=== PATIENT | female | born 1960 | race Caucasian/White ===

== ENCOUNTER 2023-09-09 15:12 | Inpatient (IN) | payer MEDICARE, OTHER ==
[~2023-09-09] VITALS: Ht 160 cm; Wt 49.9 kg
[~2023-09-09 15:12] MED LIST: FLUO10CA26 PO; OMEP20TA20 PO
[2023-09-09] MEDS ORDERED: CEFTRIAXONE 2 G in IV DEXTROSE 5% 100 ML IV ONE (15:30)
[2023-09-09] MEDS ORDERED: IV NORMAL SALINE 1000 ML BAG IV ONE (15:30)
[2023-09-09] MEDS ORDERED: METRONIDAZOLE 500 MG/NS 100 ML PIGGYBACK IV ONE (15:30)
[2023-09-09] MEDS ORDERED: CEFTRIAXONE 1 G VIAL ONE (15:55)
[2023-09-09] MEDS ORDERED: METRONIDAZOLE 500 MG/NS 100ML 100 ML IV ONE (15:55)
[2023-09-09 16:10] LABS: BASOPHILS # (AUTO) 0.1 K/UL (0.0-0.2); BASOPHILS % (AUTO) 1.5 % (0.0-2.0); DIFFERENTIAL COMMENT 0; EOSINOPHILS % (AUTO) 0.3 % (0.0-7.0); HEMOGLOBIN 7.8 g/dL (10.9-14.3); LYMPHOCYTES # (AUTO) 0.4 K/uL (0.8-4.8); LYMPHOCYTES % (AUTO) 5.7 % (20.5-51.5); MEAN CORPUSCULAR HEMOGLOBIN 20.6 uug (24.7-32.8); MEAN CORPUSCULAR HGB CONC 30 g/dL (32.3-35.6); MEAN CORPUSCULAR VOLUME 69.3 fL (75.5-95.3); MONOCYTES # (AUTO) 0.4 K/uL (0.1-1.30); MONOCYTES % (AUTO) 5.3 % (0.0-11.0); NEUTROPHILS # (AUTO) 5.8 K/uL (1.8-8.9); NEUTROPHILS % (AUTO) 87.2 % (38.5-71.5); PLATELET COUNT (AUTO) 251 K/uL (179-408); RED BLOOD CELL COUNT(AUTO) 3.76 MIL/uL (3.63-4.92); RED CELL DISTRIBUTION WIDTH 22.7 % (12.3-17.7); WHITE BLOOD COUNT (AUTO) 6.7 K/uL (3.8-11.8)
[2023-09-09 16:11] LABS: ETHANOL < 3 MG/DL (0-10)
[2023-09-09 16:15] LABS: AMMONIA < 10 umol/L (11-32)
[2023-09-09 16:22] LABS: THYROID STIMULATING HORMONE 1.036 mIU/mL (0.358-3.740)
[2023-09-09 16:32] LABS: CALCIUM 9.6 mg/dL (8.5-10.1); CARBON DIOXIDE 18 mmol/L (21-32); CHLORIDE 106 mmol/L (98-107); CREATININE 0.6 mg/dL (0.6-1.3); GLUCOSE 91 mg/dL (74-106); POTASSIUM 3.8 mmol/L (3.5-5.1); SODIUM SERUM 145 mmol/L (136-145); UREA NITROGEN, BLOOD 40 mg/dL (7-18)
[2023-09-09 16:41] LABS: ALANINE AMINOTRANSFERASE 225 U/L (14-59); ALBUMIN 2.1 g/dL (3.4-5.0); ALKALINE PHOSPHATASE 163 U/L (50-136); ASPARTATE AMINOTRANSFERASE 107 U/L (15-37); BILIRUBIN,DIRECT 0.4 mg/dL (0.0-0.2); BILIRUBIN,TOTAL 0.8 mg/dL (0.2-1.0); TOTAL PROTEIN, SERUM 6.3 g/dL (6.4-8.2)
[2023-09-09 16:42] LABS: ACETAMINOPHEN < 10.0 ug/mL (10-30)
[2023-09-09 17:08] LABS: *BLOOD, URINE NEGATIVE (NEGATIVE); *CLARITY,URINE CLEAR (CLEAR); *COLOR,URINE DARK YELLOW (YELLOW); *KETONES,URINE 2+ (NEGATIVE); *PROTEIN,URINE 1+ (NEGATIVE); *UROBILINOGEN,URINE 0.2 E.U./dl (NORMAL); LEUKOCYTE ESTERASE ,URINE NEGATIVE (NEGATIVE); NITRITE, URINE NEGATIVE (NEGATIVE); UGLUCOSE NEGATIVE (NEGATIVE)
[2023-09-09 17:14] LABS: *BILIRUBIN,URIN 1+ (NEGATIVE)
[2023-09-09 17:39] LABS: *AMPHETAMINE, URINE NEGATIVE (NEGATIVE); *BARBITURATE, URINE NEGATIVE (NEGATIVE); *BENZODIAZEPINE, URINE POSITIVE (NEGATIVE); *CANNABINOID, URINE NEGATIVE (NEGATIVE); *COCCAINE, URINE POSITIVE (NEGATIVE); *OPIATE, URINE NEGATIVE (NEGATIVE); *PHENCYCLIDINE SCREEN,URINE NEGATIVE (NEGATIVE); FENTANYL, URINE NEGATIVE (NEGATIVE)
[2023-09-09] MEDS ORDERED: SWABABLE VALVE TRANSFER SET EA MC ONE (17:41)
[2023-09-09] MEDS ORDERED: IOHEXOL 300MG/ML 100 ML INFUS..BTL ONE (17:41)
[2023-09-09] MEDS ORDERED: IV NORMAL SALINE 250 ML IV ONE (17:41)
[2023-09-09 18:56] LABS: RBC,URINE 0-3 /HPF (0-3)
[2023-09-09 18:57] LABS: WBC,URINE NONE SEEN /HPF (0-3)
[2023-09-09 18:58] LABS: BACTERIA,URINE FEW /HPF (NONE SEEN)
[2023-09-09 19:00] LABS: SQUAMOUS EPITHELIAL CELL,UR FEW /HPF (NONE SEEN)
[2023-09-09] MEDS ORDERED: REMEDY ESSENTIAL ZINC PASTE 113 GM TP PRN (19:00)
[2023-09-09] MEDS ORDERED: ONDANSETRON 4 MG/2 ML VIAL IV PRN (19:00)
[2023-09-09] MEDS ORDERED: IV D5W-0.45% NS +20 KCL 1,000 ML IV ONE ×2 (19:36→19:45)
[2023-09-09 21:20] VITALS: BP 119/74; TEMP 98.8; O2SAT 93
[2023-09-09] MEDS: IV NS 1000 ML 1,000 ML IV PRN (22:26)
[2023-09-09] MEDS ORDERED: PIPERACILLIN/TAZO 4.5 GM VIAL IV ONE ×2 (22:41→22:42)
[2023-09-09] MEDS: PIPERACILLIN SODIUM/TAZOBACTAM 4.5 G in IV DEXTROSE 5% 50 ML IV SCH (23:00)
[2023-09-10] VITALS: BP 116/74; TEMP 98.5; O2SAT 92
[2023-09-10 04:00] VITALS: BP 125/74; TEMP 98.7; O2SAT 94
[2023-09-10] MEDS: PIPERACILLIN SODIUM/TAZOBACTAM 4.5 G in IV DEXTROSE 5% 50 ML IV SCH (05:22)
[2023-09-10 06:51] LABS: BASOPHILS % (AUTO) 0.3 % (0.0-2.0); EOSINOPHILS % (AUTO) 0.3 % (0.0-7.0); HEMATOCRIT 23.4 % (31.2-41.9); LYMPHOCYTES # (AUTO) 0.4 K/uL (0.8-4.8); LYMPHOCYTES % (AUTO) 5.9 % (20.5-51.5); MEAN CORPUSCULAR HEMOGLOBIN 21.2 uug (24.7-32.8); MEAN CORPUSCULAR HGB CONC 31 g/dL (32.3-35.6); MEAN CORPUSCULAR VOLUME 67.8 fL (75.5-95.3); MONOCYTES # (AUTO) 0.4 K/uL (0.1-1.30); MONOCYTES % (AUTO) 6.4 % (0.0-11.0); NEUTROPHILS # (AUTO) 5.3 K/uL (1.8-8.9); NEUTROPHILS % (AUTO) 87.1 % (38.5-71.5); PLATELET COUNT (AUTO) 230 K/uL (179-408); RED BLOOD CELL COUNT(AUTO) 3.45 MIL/uL (3.63-4.92); RED CELL DISTRIBUTION WIDTH 22.3 % (12.3-17.7); WHITE BLOOD COUNT (AUTO) 6.1 K/uL (3.8-11.8)
[2023-09-10 07:04] LABS: DIFFERENTIAL COMMENT 1; HEMOGLOBIN 7.3 g/dL (10.9-14.3)
[2023-09-10 07:10] LABS: ALBUMIN 1.9 g/dL (3.4-5.0); BILIRUBIN,TOTAL 0.6 mg/dL (0.2-1.0); CALCIUM 8.5 mg/dL (8.5-10.1); CREATININE 0.7 mg/dL (0.6-1.3); MAGNESIUM 2.1 mg/dL (1.8-2.4); PHOSPHOROUS 2.3 mg/dL (2.5-4.9); POTASSIUM 3.6 mmol/L (3.5-5.1); TOTAL PROTEIN, SERUM 5.8 g/dL (6.4-8.2)
[2023-09-10 08:00] VITALS: BP 129/82; TEMP 97.6; O2SAT 98
[2023-09-10 11:22] VITALS: BP 142/86; TEMP 98; O2SAT 94
[2023-09-10 11:38] LABS: ANISOCYTOSIS 2+; BAND % (MANUAL) 8 % (0-10); HYPOCHROMASIA 1+; LYMPHOCYTES % (MANUAL) 7 % (20-40); METAMYELOCYTES % 1 % (0-1); MONOCYTES % (MANUAL) 7 % (2-10); NEUTROPHILS % (MANUAL) 77 % (42-75); PLATELET ESTIMATE ADEQUATE
[2023-09-10] MEDS: IV NS 1000 ML 1,000 ML IV PRN (12:18)
[2023-09-10] MEDS: PIPERACILLIN SODIUM/TAZOBACTAM 3.375 G in IV DEXTROSE 5% 100 ML IV SCH ×2 (13:58→22:14)
[2023-09-10] MEDS ORDERED: PIPERACILLIN SODIUM/TAZOBACTAM 4.5 G in IV DEXTROSE 5% 50 ML IV SCH (14:00)
[2023-09-10] MEDS: ACETYLCYSTEINE 10% 4ML VIAL NEB PRN (14:05)
[2023-09-10] MEDS: ALBUTEROL SULFATE 2.5 MG/3 ML NEBU NEB PRN (14:05)
[2023-09-10 15:47] VITALS: BP 132/85; TEMP 97.8; O2SAT 94
[2023-09-10] MEDS ORDERED: NEUTRA PHOS PACKET PO ONE (16:00)
[2023-09-10] MEDS ORDERED: POTASSIUM PHOSPHATE MM 15 MMOL in IV NORMAL SALINE 250 ML IV ONE (18:30)
[2023-09-10] MEDS ORDERED: MORPHINE SULFATE 2 MG/1 ML DISP.SYRIN IV PRN (19:45)
[2023-09-10 20:15] VITALS: BP 147/95; TEMP 98.2; O2SAT 91
[2023-09-11] VITALS (8 sets, daily range): BP systolic 127–175; BP diastolic 82–99; TEMP 97.8–99.4; O2SAT 93–98
[2023-09-11] MEDS: ALBUTEROL SULFATE 2.5 MG/3 ML NEBU NEB PRN (01:40)
[2023-09-11] MEDS: ACETYLCYSTEINE 10% 4ML VIAL NEB PRN (01:41)
[2023-09-11] MEDS: PIPERACILLIN SODIUM/TAZOBACTAM 3.375 G in IV DEXTROSE 5% 100 ML IV SCH ×3 (05:15→21:50)
[2023-09-11 07:48] LABS: BASOPHILS % (AUTO) 0.1 % (0.0-2.0); EOSINOPHILS % (AUTO) 0.8 % (0.0-7.0); LYMPHOCYTES % (AUTO) 16.7 % (20.5-51.5); MEAN CORPUSCULAR HEMOGLOBIN 21.7 uug (24.7-32.8); MEAN CORPUSCULAR HGB CONC 32 g/dL (32.3-35.6); MEAN CORPUSCULAR VOLUME 67.5 fL (75.5-95.3); MONOCYTES # (AUTO) 0.4 K/uL (0.1-1.30); MONOCYTES % (AUTO) 6.5 % (0.0-11.0); NEUTROPHILS # (AUTO) 4.6 K/uL (1.8-8.9); NEUTROPHILS % (AUTO) 75.9 % (38.5-71.5); PLATELET COUNT (AUTO) 217 K/uL (179-408); RED BLOOD CELL COUNT(AUTO) 3.02 MIL/uL (3.63-4.92); RED CELL DISTRIBUTION WIDTH 22.6 % (12.3-17.7)
[2023-09-11 07:57] LABS: CREATININE 0.6 mg/dL (0.6-1.3); POTASSIUM 3.5 mmol/L (3.5-5.1)
[2023-09-11 08:03] LABS: ALBUMIN 1.6 g/dL (3.4-5.0); BILIRUBIN,TOTAL 0.7 mg/dL (0.2-1.0); TOTAL PROTEIN, SERUM 5.4 g/dL (6.4-8.2)
[2023-09-11 08:07] LABS: DIFFERENTIAL COMMENT 1
[2023-09-11 08:09] LABS: HEMATOCRIT 20.4 % (31.2-41.9); HEMOGLOBIN 6.6 g/dL (10.9-14.3)
[2023-09-11] MEDS: MORPHINE SULFATE 4 MG/1 ML DISP.SYRIN IV PRN ×2 (10:08→14:22)
[2023-09-11] MEDS ORDERED: QUET200T PO (10:10)
[2023-09-11] MEDS ORDERED: OXCA600T8 PO (10:10)
[2023-09-11] MEDS ORDERED: ALBU18HF2 INH (10:10)
[2023-09-11] MEDS ORDERED: OMEP40CA21 PO (10:10)
[2023-09-11] MEDS ORDERED: CITA20TA16 PO (10:10)
[2023-09-11] MEDS: IV D5W 1000ML 1,000 ML IV PRN (11:07)
[2023-09-11 14:47] LABS: ANISOCYTOSIS 1+; BAND % (MANUAL) 6 % (0-10); EOSINOPHILS % (MANUAL) 2 % (0-8); HYPOCHROMASIA 1+; LYMPHOCYTES % (MANUAL) 13 % (20-40); MONOCYTES % (MANUAL) 7 % (2-10); NEUTROPHILS % (MANUAL) 72 % (42-75); PLATELET ESTIMATE ADEQUATE
[2023-09-11] MEDS: hydrALAZINE HCL 25 MG TABLET PO PRN (15:00)
[2023-09-11] MEDS: OXCARBAZEPINE 300 MG TABLET PO SCH (17:06)
[2023-09-11] MEDS ORDERED: PIPERACILLIN SODIUM/TAZOBACTAM 3.375 G in IV DEXTROSE 5% 50 ML IV ONE (18:00)
[2023-09-11] MEDS ORDERED: ALBUTEROL SULFATE 8 GM HFA.AER.AD INH SCH (18:00)
[2023-09-11 19:12] LABS: HEMATOCRIT 29.3 % (31.2-41.9); HEMOGLOBIN 9.3 g/dL (10.9-14.3)
[2023-09-11] MEDS: QUETIAPINE FUMARATE 200 MG TABLET PO SCH (20:08)
[2023-09-11] MEDS ORDERED: PIPERACILLIN SODIUM/TAZO 3.375 GM VIAL ONE ×2 (21:41→21:42)
[2023-09-11 23:06] LABS: *BILIRUBIN,URIN 1+ (NEGATIVE); *BLOOD, URINE 1+ (NEGATIVE); *CLARITY,URINE CLOUDY (CLEAR); *COLOR,URINE DARK YELLOW (YELLOW); *KETONES,URINE TRACE (NEGATIVE); *PROTEIN,URINE 2+ (NEGATIVE); *UROBILINOGEN,URINE 0.2 E.U./dl (NORMAL); LEUKOCYTE ESTERASE ,URINE NEGATIVE (NEGATIVE); NITRITE, URINE NEGATIVE (NEGATIVE); PH,URINE 5.5 (5.0-8.0); UGLUCOSE NEGATIVE (NEGATIVE)
[2023-09-11 23:13] LABS: *CREATININE,URINE 105.7 mg/dL (30-125); *URINE TOTAL PROTEIN RANDOM 100.5 mg/dL (<150/24HR)
[2023-09-11 23:18] LABS: BACTERIA,URINE NONE SEEN /HPF (NONE SEEN); SQUAMOUS EPITHELIAL CELL,UR FEW /HPF (NONE SEEN)
[2023-09-11 23:19] LABS: URIC ACID CRYSTALS,URINE MODERATE /HPF (NONE SEEN)
[2023-09-12] VITALS (8 sets, daily range): BP systolic 112–120; BP diastolic 70–77; TEMP 97–97.4; O2SAT 96–98
[2023-09-12] MEDS: PIPERACILLIN SODIUM/TAZOBACTAM 3.375 G in IV DEXTROSE 5% 100 ML IV SCH ×3 (05:15→21:33)
[2023-09-12] MEDS: IV D5W 1000ML 1,000 ML IV PRN ×2 (05:16→18:03)
[2023-09-12] MEDS: PANTOPRAZOLE SODIUM 40 MG TABLET.DR PO SCH (06:25)
[2023-09-12] MEDS: HYDROMORPHONE 1 MG/1 ML DISP.SYRIN IV PRN ×2 (06:33→14:22)
[2023-09-12] MEDS: CITALOPRAM 20 MG TABLET PO SCH (09:08)
[2023-09-12] MEDS: OXCARBAZEPINE 300 MG TABLET PO SCH ×2 (09:09→16:06)
[2023-09-12 09:37] LABS: BASOPHILS % (AUTO) 0.1 % (0.0-2.0); DIFFERENTIAL COMMENT 0; EOSINOPHILS # (AUTO) 0.1 K/uL (0.0-0.7); EOSINOPHILS % (AUTO) 0.5 % (0.0-7.0); HEMATOCRIT 24.4 % (31.2-41.9); HEMOGLOBIN 7.7 g/dL (10.9-14.3); LYMPHOCYTES # (AUTO) 0.9 K/uL (0.8-4.8); LYMPHOCYTES % (AUTO) 9.2 % (20.5-51.5); MEAN CORPUSCULAR HEMOGLOBIN 22.8 uug (24.7-32.8); MEAN CORPUSCULAR HGB CONC 32 g/dL (32.3-35.6); MEAN CORPUSCULAR VOLUME 72.1 fL (75.5-95.3); MONOCYTES % (AUTO) 10.3 % (0.0-11.0); NEUTROPHILS # (AUTO) 7.9 K/uL (1.8-8.9); NEUTROPHILS % (AUTO) 79.9 % (38.5-71.5); PLATELET COUNT (AUTO) 179 K/uL (179-408); RED BLOOD CELL COUNT(AUTO) 3.39 MIL/uL (3.63-4.92); WHITE BLOOD COUNT (AUTO) 9.9 K/uL (3.8-11.8)
[2023-09-12] MEDS: ALBUTEROL SULFATE 2.5 MG/3 ML NEBU NEB PRN ×2 (10:08→13:53)
[2023-09-12] MEDS: ACETYLCYSTEINE 10% 4ML VIAL NEB PRN (10:09)
[2023-09-12 10:30] LABS: BILIRUBIN,TOTAL 0.7 mg/dL (0.2-1.0); CALCIUM 8.3 mg/dL (8.5-10.1); CREATININE 0.7 mg/dL (0.6-1.3); MAGNESIUM 1.9 mg/dL (1.8-2.4); PHOSPHOROUS 2.5 mg/dL (2.5-4.9); POTASSIUM 3.7 mmol/L (3.5-5.1); TOTAL PROTEIN, SERUM 5.4 g/dL (6.4-8.2)
[2023-09-12 10:38] LABS: ALBUMIN 1.5 g/dL (3.4-5.0)
[2023-09-12] MEDS ORDERED: BUSP5POW PO (12:14)
[2023-09-12] MEDS ORDERED: BUSP5TAB3 PO (12:15)
[2023-09-12] MEDS: busPIRone 5 MG TABLET PO SCH (16:06)
[2023-09-12] MEDS: QUETIAPINE FUMARATE 200 MG TABLET PO SCH (20:53)
[2023-09-13] VITALS (11 sets, daily range): BP systolic 109–137; BP diastolic 46–88; TEMP 97–98.5; O2SAT 92–97
[2023-09-13] MEDS: PIPERACILLIN SODIUM/TAZOBACTAM 3.375 G in IV DEXTROSE 5% 100 ML IV SCH ×3 (05:31→21:42)
[2023-09-13] MEDS: PANTOPRAZOLE SODIUM 40 MG TABLET.DR PO SCH (06:01)
[2023-09-13 06:52] LABS: EOSINOPHILS # (AUTO) 0.1 K/uL (0.0-0.7)
[2023-09-13 06:55] LABS: BASOPHILS % (AUTO) 0.2 % (0.0-2.0); EOSINOPHILS % (AUTO) 1.1 % (0.0-7.0); LYMPHOCYTES # (AUTO) 0.9 K/uL (0.8-4.8); LYMPHOCYTES % (AUTO) 10.3 % (20.5-51.5); MEAN CORPUSCULAR HEMOGLOBIN 23.3 uug (24.7-32.8); MEAN CORPUSCULAR HGB CONC 32 g/dL (32.3-35.6); MEAN CORPUSCULAR VOLUME 71.7 fL (75.5-95.3); MONOCYTES % (AUTO) 10.9 % (0.0-11.0); NEUTROPHILS % (AUTO) 77.5 % (38.5-71.5); PLATELET COUNT (AUTO) 155 K/uL (179-408); RED BLOOD CELL COUNT(AUTO) 2.88 MIL/uL (3.63-4.92); RED CELL DISTRIBUTION WIDTH 23.8 % (12.3-17.7)
[2023-09-13 07:03] LABS: DIFFERENTIAL COMMENT 1
[2023-09-13 07:07] LABS: HEMATOCRIT 20.6 % (31.2-41.9); HEMOGLOBIN 6.7 g/dL (10.9-14.3)
[2023-09-13 07:28] LABS: MAGNESIUM 1.8 mg/dL (1.8-2.4); PHOSPHOROUS 2.8 mg/dL (2.5-4.9)
[2023-09-13 09:01] LABS: IRON, SERUM 13 ug/dL (50-175)
[2023-09-13] MEDS: CITALOPRAM 20 MG TABLET PO SCH (09:16)
[2023-09-13] MEDS: busPIRone 5 MG TABLET PO SCH ×2 (09:16→17:10)
[2023-09-13] MEDS: OXCARBAZEPINE 300 MG TABLET PO SCH ×2 (09:16→17:10)
[2023-09-13 10:37] LABS: BAND % (MANUAL) 5 % (0-10); EOSINOPHILS % (MANUAL) 1 % (0-8); LYMPHOCYTES % (MANUAL) 13 % (20-40); MONOCYTES % (MANUAL) 11 % (2-10); NEUTROPHILS % (MANUAL) 70 % (42-75); PLATELET ESTIMATE ADEQUATE
[2023-09-13 10:38] LABS: ANISOCYTOSIS 2+; HYPOCHROMASIA 1+
[2023-09-13] MEDS ORDERED: ALBUTEROL SULFATE 2.5 MG/3 ML NEBU ONE (12:55)
[2023-09-13] MEDS ORDERED: PROPOFOL 200 MG/20 ML BOTTLE ONE (13:00)
[2023-09-13] MEDS ORDERED: ALBUTEROL SULFATE 8 GM HFA.AER.AD ONE (13:59)
[2023-09-13] MEDS: HYDROMORPHONE 1 MG/1 ML DISP.SYRIN IV PRN ×2 (15:28→20:09)
[2023-09-13] MEDS: MEDIHONEY= THERAHONEY 1.5 OZ TUBE TOP SCH (16:24)
[2023-09-13] MEDS: BENZOCAINE/MENTH/CETYLPYRD LOZENGE MM PRN (17:10)
[2023-09-13] MEDS: SUCRALFATE 1 G/10 ML LIQUID UDC GT SCH ×2 (17:10→20:06)
[2023-09-13] MEDS: QUETIAPINE FUMARATE 200 MG TABLET PO SCH (20:06)
[2023-09-13] MEDS ORDERED: IOHEXOL 300MG/ML 100 ML INFUS..BTL ONE (20:23)
[2023-09-13] MEDS ORDERED: IV NORMAL SALINE 250 ML IV ONE (20:23)
[2023-09-13] MEDS ORDERED: SWABABLE VALVE TRANSFER SET EA MC ONE (20:23)
[2023-09-14] MEDS: IV D5W 1000ML 1,000 ML IV PRN ×2 (01:47→15:21)
[2023-09-14 04:42] VITALS: BP 128/70; TEMP 98.7; O2SAT 95
[2023-09-14] MEDS: PIPERACILLIN SODIUM/TAZOBACTAM 3.375 G in IV DEXTROSE 5% 100 ML IV SCH ×3 (05:30→21:09)
[2023-09-14] MEDS: PANTOPRAZOLE SODIUM 40 MG TABLET.DR PO SCH (06:01)
[2023-09-14 07:36] LABS: HEMATOCRIT 24.2 % (31.2-41.9); HEMOGLOBIN 7.9 g/dL (10.9-14.3)
[2023-09-14] MEDS: SUCRALFATE 1 G/10 ML LIQUID UDC GT SCH ×4 (07:39→20:30)
[2023-09-14] MEDS: FLUCONAZOLE 200 MG TABLET PO SCH (08:36)
[2023-09-14] MEDS: OXCARBAZEPINE 300 MG TABLET PO SCH ×2 (08:36→16:53)
[2023-09-14] MEDS: busPIRone 5 MG TABLET PO SCH ×2 (08:36→16:52)
[2023-09-14] MEDS: MEDIHONEY= THERAHONEY 1.5 OZ TUBE TOP SCH (08:36)
[2023-09-14] MEDS: CITALOPRAM 20 MG TABLET PO SCH (08:36)
[2023-09-14] MEDS: HYDROMORPHONE 1 MG/1 ML DISP.SYRIN IV PRN ×2 (09:09→15:21)
[2023-09-14 11:02] VITALS: BP 147/81; TEMP 98.2; O2SAT 95
[2023-09-14 15:09] VITALS: BP 128/80; TEMP 98.2; O2SAT 92
[2023-09-14] MEDS: BENZOCAINE/MENTH/CETYLPYRD LOZENGE MM PRN (16:53)
[2023-09-14] MEDS: QUETIAPINE FUMARATE 200 MG TABLET PO SCH (20:30)
[2023-09-14 20:48] VITALS: BP 140/70; TEMP 99.1; O2SAT 95
[2023-09-15 00:18] VITALS: O2SAT 97
[2023-09-15 04:05] VITALS: BP 110/71; TEMP 98.6; O2SAT 97
[2023-09-15] MEDS: PIPERACILLIN SODIUM/TAZOBACTAM 3.375 G in IV DEXTROSE 5% 100 ML IV SCH ×3 (05:12→22:46)
[2023-09-15] MEDS: IV D5W 1000ML 1,000 ML IV PRN (05:13)
[2023-09-15 06:48] LABS: BASOPHILS % (AUTO) 0.4 % (0.0-2.0); EOSINOPHILS # (AUTO) 0.1 K/uL (0.0-0.7); EOSINOPHILS % (AUTO) 0.8 % (0.0-7.0); HEMATOCRIT 23.4 % (31.2-41.9); HEMOGLOBIN 7.7 g/dL (10.9-14.3); LYMPHOCYTES # (AUTO) 0.6 K/uL (0.8-4.8); LYMPHOCYTES % (AUTO) 8.1 % (20.5-51.5); MEAN CORPUSCULAR HEMOGLOBIN 24.8 uug (24.7-32.8); MEAN CORPUSCULAR HGB CONC 33 g/dL (32.3-35.6); MEAN CORPUSCULAR VOLUME 75.4 fL (75.5-95.3); MONOCYTES % (AUTO) 14.5 % (0.0-11.0); NEUTROPHILS # (AUTO) 5.3 K/uL (1.8-8.9); NEUTROPHILS % (AUTO) 76.2 % (38.5-71.5); PLATELET COUNT (AUTO) 236 K/uL (179-408); RED BLOOD CELL COUNT(AUTO) 3.11 MIL/uL (3.63-4.92); WHITE BLOOD COUNT (AUTO) 6.9 K/uL (3.8-11.8)
[2023-09-15] MEDS: PANTOPRAZOLE SODIUM 40 MG TABLET.DR PO SCH (06:53)
[2023-09-15] MEDS: SUCRALFATE 1 G/10 ML LIQUID UDC GT SCH ×4 (06:53→20:48)
[2023-09-15] MEDS: HYDROMORPHONE 1 MG/1 ML DISP.SYRIN IV PRN (06:54)
[2023-09-15 07:00] LABS: DIFFERENTIAL COMMENT 1
[2023-09-15 07:12] LABS: CALCIUM 7.4 mg/dL (8.5-10.1); CREATININE 0.6 mg/dL (0.6-1.3); MAGNESIUM 1.7 mg/dL (1.8-2.4); PHOSPHOROUS 2.4 mg/dL (2.5-4.9); POTASSIUM 2.9 mmol/L (3.5-5.1)
[2023-09-15] MEDS: busPIRone 5 MG TABLET PO SCH ×2 (09:51→17:00)
[2023-09-15] MEDS: CITALOPRAM 20 MG TABLET PO SCH (09:51)
[2023-09-15] MEDS: OXCARBAZEPINE 300 MG TABLET PO SCH ×2 (09:52→17:00)
[2023-09-15] MEDS: FLUCONAZOLE 200 MG TABLET PO SCH (09:52)
[2023-09-15] MEDS: MEDIHONEY= THERAHONEY 1.5 OZ TUBE TOP SCH (09:56)
[2023-09-15] MEDS ORDERED: POTASSIUM CHLORIDE 50 ML IV SCH (10:00)
[2023-09-15] MEDS ORDERED: DIATR MEGLU/DIATRIZOATE SODIUM 30 ML BOTTLE ONE (10:47)
[2023-09-15] MEDS: POTASSIUM CHLORIDE 20 MEQ POWDER PACKET PO SCH ×3 (11:15→15:00)
[2023-09-15] MEDS: MAGNESIUM OXIDE 400 MG TABLET PO SCH ×2 (11:15→12:00)
[2023-09-15 11:42] VITALS: BP 162/95; TEMP 98.6; O2SAT 97
[2023-09-15] MEDS: ACETAMINOPHEN 325 MG TABLET PO PRN (14:19)
[2023-09-15 16:08] VITALS: BP 150/98; TEMP 97.6; O2SAT 97
[2023-09-15] MEDS ORDERED: POTASSIUM PHOSPHATE MM 15 MMOL in IV NORMAL SALINE 250 ML IV ONE (16:15)
[2023-09-15 17:30] VITALS: O2SAT 98
[2023-09-15] MEDS ORDERED: MORPHINE SULFATE 2 MG/1 ML DISP.SYRIN IV ONE (20:00)
[2023-09-15 20:19] VITALS: BP 153/92; TEMP 98.5; O2SAT 98
[2023-09-15] MEDS: QUETIAPINE FUMARATE 200 MG TABLET PO SCH (20:48)
[2023-09-16 00:19] VITALS: O2SAT 97
[2023-09-16] MEDS: IV D5W 1000ML 1,000 ML IV PRN ×2 (04:55→20:07)
[2023-09-16 04:57] VITALS: BP 131/81; TEMP 98; O2SAT 93
[2023-09-16] MEDS: PIPERACILLIN SODIUM/TAZOBACTAM 3.375 G in IV DEXTROSE 5% 100 ML IV SCH ×3 (05:38→23:37)
[2023-09-16] MEDS: SUCRALFATE 1 G/10 ML LIQUID UDC GT SCH ×4 (06:39→21:09)
[2023-09-16] MEDS: PANTOPRAZOLE SODIUM 40 MG TABLET.DR PO SCH (06:39)
[2023-09-16 07:16] LABS: BASOPHILS % (AUTO) 0.5 % (0.0-2.0); EOSINOPHILS # (AUTO) 0.1 K/uL (0.0-0.7); EOSINOPHILS % (AUTO) 1.3 % (0.0-7.0); HEMATOCRIT 24.1 % (31.2-41.9); HEMOGLOBIN 7.9 g/dL (10.9-14.3); LYMPHOCYTES # (AUTO) 0.6 K/uL (0.8-4.8); LYMPHOCYTES % (AUTO) 10.3 % (20.5-51.5); MEAN CORPUSCULAR HEMOGLOBIN 25.1 uug (24.7-32.8); MEAN CORPUSCULAR HGB CONC 33 g/dL (32.3-35.6); MEAN CORPUSCULAR VOLUME 76.3 fL (75.5-95.3); MONOCYTES # (AUTO) 1.1 K/uL (0.1-1.30); MONOCYTES % (AUTO) 18.6 % (0.0-11.0); NEUTROPHILS # (AUTO) 4.2 K/uL (1.8-8.9); NEUTROPHILS % (AUTO) 69.3 % (38.5-71.5); PLATELET COUNT (AUTO) 323 K/uL (179-408); RED BLOOD CELL COUNT(AUTO) 3.16 MIL/uL (3.63-4.92); RED CELL DISTRIBUTION WIDTH 25.7 % (12.3-17.7); WHITE BLOOD COUNT (AUTO) 6.1 K/uL (3.8-11.8)
[2023-09-16 07:25] LABS: DIFFERENTIAL COMMENT 1
[2023-09-16 07:29] LABS: CREATININE 0.5 mg/dL (0.6-1.3); MAGNESIUM 1.7 mg/dL (1.8-2.4)
[2023-09-16 07:33] LABS: CALCIUM 7.6 mg/dL (8.5-10.1)
[2023-09-16 07:37] LABS: POTASSIUM 2.7 mmol/L (3.5-5.1)
[2023-09-16] MEDS: POTASSIUM CHLORIDE 50 ML IV SCH ×8 (09:00→15:00)
[2023-09-16] MEDS: CITALOPRAM 20 MG TABLET PO SCH (09:09)
[2023-09-16] MEDS: OXCARBAZEPINE 300 MG TABLET PO SCH ×2 (09:09→17:17)
[2023-09-16] MEDS: busPIRone 5 MG TABLET PO SCH ×2 (09:09→17:09)
[2023-09-16] MEDS: FLUCONAZOLE 200 MG TABLET PO SCH (09:10)
[2023-09-16] MEDS: MEDIHONEY= THERAHONEY 1.5 OZ TUBE TOP SCH (09:11)
[2023-09-16] MEDS: MORPHINE SULFATE 2 MG/1 ML DISP.SYRIN IV PRN ×2 (10:17→19:55)
[2023-09-16] MEDS ORDERED: MAGNESIUM OXIDE 400 MG TABLET PO ONE (11:00)
[2023-09-16 11:12] VITALS: BP 132/84; TEMP 98.6; O2SAT 97
[2023-09-16 14:06] LABS: ANISOCYTOSIS 2+; BAND % (MANUAL) 3 % (0-10); EOSINOPHILS % (MANUAL) 1 % (0-8); HYPOCHROMASIA 1+; LYMPHOCYTES % (MANUAL) 9 % (20-40); MONOCYTES % (MANUAL) 18 % (2-10); NEUTROPHILS % (MANUAL) 69 % (42-75); PLATELET ESTIMATE ADEQUATE
[2023-09-16] MEDS: POTASSIUM CHLORIDE 10 MEQ, LIDOCAINE 1% 1 ML in IV DEXTROSE 5% 100 ML IV SCH ×6 (15:06→22:32)
[2023-09-16 15:16] VITALS: BP 167/92; TEMP 98.5; O2SAT 95
[2023-09-16 16:42] VITALS: O2SAT 98
[2023-09-16] MEDS ORDERED: NEUTRA PHOS PACKET PO ONE (18:00)
[2023-09-16 21:00] VITALS: BP 161/96; TEMP 98.4; O2SAT 97
[2023-09-16] MEDS: QUETIAPINE FUMARATE 200 MG TABLET PO SCH (21:09)
[2023-09-16] MEDS: hydrALAZINE HCL 25 MG TABLET PO PRN (21:20)
[2023-09-17] VITALS (8 sets, daily range): BP systolic 136–153; BP diastolic 60–93; TEMP 98–98.5; O2SAT 93–100
[2023-09-17] MEDS: MORPHINE SULFATE 2 MG/1 ML DISP.SYRIN IV PRN ×5 (05:22→21:50)
[2023-09-17] MEDS: SUCRALFATE 1 G/10 ML LIQUID UDC GT SCH ×4 (06:35→21:50)
[2023-09-17] MEDS: PIPERACILLIN SODIUM/TAZOBACTAM 3.375 G in IV DEXTROSE 5% 100 ML IV SCH ×3 (06:35→22:40)
[2023-09-17] MEDS: PANTOPRAZOLE SODIUM 40 MG TABLET.DR PO SCH (06:35)
[2023-09-17 07:05] LABS: EOSINOPHILS # (AUTO) 0.1 K/uL (0.0-0.7); LYMPHOCYTES # (AUTO) 0.7 K/uL (0.8-4.8); MEAN CORPUSCULAR HEMOGLOBIN 24.9 uug (24.7-32.8); NEUTROPHILS # (AUTO) 3.7 K/uL (1.8-8.9); WHITE BLOOD COUNT (AUTO) 5.5 K/uL (3.8-11.8)
[2023-09-17 07:08] LABS: BASOPHILS % (AUTO) 0.8 % (0.0-2.0); EOSINOPHILS % (AUTO) 1.3 % (0.0-7.0); HEMATOCRIT 22.9 % (31.2-41.9); LYMPHOCYTES % (AUTO) 13.3 % (20.5-51.5); MEAN CORPUSCULAR HGB CONC 32 g/dL (32.3-35.6); MEAN CORPUSCULAR VOLUME 76.8 fL (75.5-95.3); NEUTROPHILS % (AUTO) 66.6 % (38.5-71.5); PLATELET COUNT (AUTO) 365 K/uL (179-408); RED BLOOD CELL COUNT(AUTO) 2.99 MIL/uL (3.63-4.92); RED CELL DISTRIBUTION WIDTH 26.3 % (12.3-17.7)
[2023-09-17 07:14] LABS: DIFFERENTIAL COMMENT 1; HEMOGLOBIN 7.4 g/dL (10.9-14.3)
[2023-09-17 07:36] LABS: CALCIUM 7.8 mg/dL (8.5-10.1); CARBON DIOXIDE 26 mmol/L (21-32); CHLORIDE 102 mmol/L (98-107); CREATININE 0.4 mg/dL (0.6-1.3); GLUCOSE 104 mg/dL (74-106); MAGNESIUM 1.8 mg/dL (1.8-2.4); POTASSIUM 3.2 mmol/L (3.5-5.1); SODIUM SERUM 135 mmol/L (136-145); UREA NITROGEN, BLOOD 3 mg/dL (7-18)
[2023-09-17] MEDS: CITALOPRAM 20 MG TABLET PO SCH (08:32)
[2023-09-17] MEDS: OXCARBAZEPINE 300 MG TABLET PO SCH ×2 (08:32→17:06)
[2023-09-17] MEDS: FLUCONAZOLE 200 MG TABLET PO SCH (08:32)
[2023-09-17] MEDS: busPIRone 5 MG TABLET PO SCH ×2 (08:39→17:06)
[2023-09-17] MEDS: MEDIHONEY= THERAHONEY 1.5 OZ TUBE TOP SCH (08:46)
[2023-09-17 11:04] LABS: ANISOCYTOSIS 2+; BAND % (MANUAL) 1 % (0-10); EOSINOPHILS % (MANUAL) 1 % (0-8); HYPOCHROMASIA 1+; LYMPHOCYTES % (MANUAL) 11 % (20-40); MONOCYTES % (MANUAL) 14 % (2-10); NEUTROPHILS % (MANUAL) 73 % (42-75); PLATELET ESTIMATE ADEQUATE
[2023-09-17] MEDS: VANCOMYCIN FOR PO/GT/NG USE PO SCH ×3 (12:11→23:03)
[2023-09-17] MEDS: POTASSIUM CHLORIDE 20 MEQ POWDER PACKET PO SCH ×4 (12:30→14:30)
[2023-09-17] MEDS ORDERED: POTASSIUM CHLORIDE 10 MEQ TAB.PRT.SR PO ONE (15:45)
[2023-09-17] MEDS: SODIUM PHOSPHATE MM 15 MMOL in IV NORMAL SALINE 250 ML IV ONE ×2 (17:06→18:55)
[2023-09-17] MEDS: ALBUTEROL SULFATE 2.5 MG/3 ML NEBU NEB PRN (18:15)
[2023-09-17] MEDS: QUETIAPINE FUMARATE 200 MG TABLET PO SCH (21:50)
[2023-09-18] VITALS (8 sets, daily range): BP systolic 116–162; BP diastolic 52–83; TEMP 98.2–98.9; O2SAT 92–97
[2023-09-18] MEDS: MORPHINE SULFATE 2 MG/1 ML DISP.SYRIN IV PRN ×2 (03:08→08:19)
[2023-09-18] MEDS: VANCOMYCIN FOR PO/GT/NG USE PO SCH ×4 (05:33→23:15)
[2023-09-18] MEDS: PIPERACILLIN SODIUM/TAZOBACTAM 3.375 G in IV DEXTROSE 5% 100 ML IV SCH (05:33)
[2023-09-18 06:32] LABS: EOSINOPHILS # (AUTO) 0.1 K/uL (0.0-0.7); NEUTROPHILS # (AUTO) 3.9 K/uL (1.8-8.9)
[2023-09-18 06:33] LABS: BASOPHILS # (AUTO) 0.1 K/UL (0.0-0.2); BASOPHILS % (AUTO) 1.1 % (0.0-2.0); EOSINOPHILS % (AUTO) 1.8 % (0.0-7.0); HEMATOCRIT 22.1 % (31.2-41.9); LYMPHOCYTES # (AUTO) 0.9 K/uL (0.8-4.8); LYMPHOCYTES % (AUTO) 15.5 % (20.5-51.5); MEAN CORPUSCULAR HEMOGLOBIN 25.2 uug (24.7-32.8); MEAN CORPUSCULAR HGB CONC 33 g/dL (32.3-35.6); MEAN CORPUSCULAR VOLUME 76.5 fL (75.5-95.3); MONOCYTES % (AUTO) 16.3 % (0.0-11.0); NEUTROPHILS % (AUTO) 65.3 % (38.5-71.5); PLATELET COUNT (AUTO) 462 K/uL (179-408); RED CELL DISTRIBUTION WIDTH 26.2 % (12.3-17.7); WHITE BLOOD COUNT (AUTO) 5.9 K/uL (3.8-11.8)
[2023-09-18 06:39] LABS: CALCIUM 7.8 mg/dL (8.5-10.1); CREATININE 0.5 mg/dL (0.6-1.3); MAGNESIUM 1.7 mg/dL (1.8-2.4); PHOSPHOROUS 2.7 mg/dL (2.5-4.9)
[2023-09-18 06:47] LABS: DIFFERENTIAL COMMENT 1; HEMOGLOBIN 7.3 g/dL (10.9-14.3)
[2023-09-18 06:50] LABS: NEUTROPHILS % (MANUAL) 0 % (42-75)
[2023-09-18 06:51] LABS: LYMPHOCYTES % (MANUAL) 0 % (20-40)
[2023-09-18] MEDS: PANTOPRAZOLE SODIUM 40 MG TABLET.DR PO SCH (07:03)
[2023-09-18] MEDS: SUCRALFATE 1 G/10 ML LIQUID UDC GT SCH ×4 (07:03→20:42)
[2023-09-18] MEDS: FLUCONAZOLE 200 MG TABLET PO SCH (08:18)
[2023-09-18] MEDS: CITALOPRAM 20 MG TABLET PO SCH (08:18)
[2023-09-18] MEDS: MEDIHONEY= THERAHONEY 1.5 OZ TUBE TOP SCH (08:18)
[2023-09-18] MEDS: OXCARBAZEPINE 300 MG TABLET PO SCH ×2 (08:18→16:48)
[2023-09-18] MEDS: busPIRone 5 MG TABLET PO SCH ×2 (08:18→16:47)
[2023-09-18] MEDS ORDERED: POTASSIUM CHLORIDE 20 MEQ POWDER PACKET GT ONE ×2 (10:00→14:00)
[2023-09-18] MEDS ORDERED: VANC500V PO (10:19)
[2023-09-18] MEDS ORDERED: SUCR1ORA GT (10:19)
[2023-09-18] MEDS ORDERED: FLUC200T PO (10:19)
[2023-09-18] MEDS: MAGNESIUM OXIDE 400 MG TABLET PO SCH ×2 (10:27→14:00)
[2023-09-18] MEDS ORDERED: POTASSIUM CHLORIDE 20 MEQ TAB.PRT.SR PO ONE (14:00)
[2023-09-18] MEDS ORDERED: POTASSIUM CHLORIDE 10 MEQ TAB.PRT.SR PO ONE (14:00)
[2023-09-18] MEDS: QUETIAPINE FUMARATE 200 MG TABLET PO SCH (20:42)
[2023-09-18] MEDS: ACETAMINOPHEN 325 MG TABLET PO PRN (20:54)
[2023-09-19 05:00] VITALS: O2SAT 98
[2023-09-19] MEDS: VANCOMYCIN FOR PO/GT/NG USE PO SCH ×2 (06:03→11:45)
[2023-09-19] MEDS: PANTOPRAZOLE SODIUM 40 MG TABLET.DR PO SCH (06:05)
[2023-09-19 06:10] VITALS: BP 164/94; TEMP 97.1; O2SAT 93
[2023-09-19] MEDS: hydrALAZINE HCL 25 MG TABLET PO PRN (06:18)
[2023-09-19 07:31] LABS: CALCIUM 8.3 mg/dL (8.5-10.1); CARBON DIOXIDE 28 mmol/L (21-32); CHLORIDE 104 mmol/L (98-107); CREATININE 0.4 mg/dL (0.6-1.3); GLUCOSE 92 mg/dL (74-106); MAGNESIUM 1.8 mg/dL (1.8-2.4); POTASSIUM 3.3 mmol/L (3.5-5.1); SODIUM SERUM 137 mmol/L (136-145); UREA NITROGEN, BLOOD 4 mg/dL (7-18)
[2023-09-19] MEDS: busPIRone 5 MG TABLET PO SCH (09:07)
[2023-09-19] MEDS: SUCRALFATE 1 G/10 ML LIQUID UDC GT SCH ×3 (09:07→15:45)
[2023-09-19] MEDS: CITALOPRAM 20 MG TABLET PO SCH (09:07)
[2023-09-19] MEDS: FLUCONAZOLE 200 MG TABLET PO SCH (09:08)
[2023-09-19] MEDS: OXCARBAZEPINE 300 MG TABLET PO SCH (09:08)
[2023-09-19] MEDS: MEDIHONEY= THERAHONEY 1.5 OZ TUBE TOP SCH (09:09)
[2023-09-19] MEDS: ACETAMINOPHEN 325 MG TABLET PO PRN (09:12)
[2023-09-19 09:23] LABS: BASOPHILS # (AUTO) 0.1 K/UL (0.0-0.2); BASOPHILS % (AUTO) 0.8 % (0.0-2.0); EOSINOPHILS # (AUTO) 0.1 K/uL (0.0-0.7); EOSINOPHILS % (AUTO) 1.1 % (0.0-7.0); HEMATOCRIT 32.5 % (31.2-41.9); HEMOGLOBIN 10.2 g/dL (10.9-14.3); LYMPHOCYTES # (AUTO) 0.9 K/uL (0.8-4.8); LYMPHOCYTES % (AUTO) 12.7 % (20.5-51.5); MEAN CORPUSCULAR HEMOGLOBIN 28.4 uug (24.7-32.8); MEAN CORPUSCULAR HGB CONC 31 g/dL (32.3-35.6); MEAN CORPUSCULAR VOLUME 90.4 fL (75.5-95.3); MONOCYTES # (AUTO) 0.9 K/uL (0.1-1.30); MONOCYTES % (AUTO) 13.4 % (0.0-11.0); NEUTROPHILS # (AUTO) 4.9 K/uL (1.8-8.9); PLATELET COUNT (AUTO) 262 K/uL (179-408); WHITE BLOOD COUNT (AUTO) 6.8 K/uL (3.8-11.8)
[2023-09-19 09:24] LABS: DIFFERENTIAL COMMENT 1
[2023-09-19 11:18] VITALS: BP 137/79; TEMP 98.4; O2SAT 95
[2023-09-19] MEDS: POTASSIUM CHLORIDE 10 MEQ TAB.PRT.SR PO SCH ×2 (14:31→15:45)
[2023-09-19 16:08] VITALS: BP 139/72; TEMP 98.7; O2SAT 95
== END 2023-09-19 16:50 | DRG 981 ==
LOC: ER 15:12 → TELE3 20:58 → MEDSURG3 09-13 09:45
PROVIDERS: ADMIT Internal Medicine; ATTEND Internal Medicine
PROC: 30233N1 Transfusion of Nonautologous Red Blood Cells into Peripheral Vein, Percutaneous Approach (ICD-10-PCS; 2023-09-11)
PROC: 0W3P8ZZ Control Bleeding in Gastrointestinal Tract, Via Natural or Artificial Opening Endoscopic (ICD-10-PCS; principal; 2023-09-13)
PROC: 0JB83ZZ Excision of Abdomen Subcutaneous Tissue and Fascia, Percutaneous Approach (ICD-10-PCS; 2023-09-15)
PROC: 0KB Muscles, Excision (ICD-10-PCS; 2023-09-17)
PROC: 0KB Muscles, Excision (ICD-10-PCS; 2023-09-17)
PROC: 0KBP3ZZ Excision of Left Hip Muscle, Percutaneous Approach (ICD-10-PCS; 2023-09-17)
PROC: 0KBN3ZZ Excision of Right Hip Muscle, Percutaneous Approach (ICD-10-PCS; 2023-09-17)
DX: A04.72 Enterocolitis due to Clostridium difficile, not specified as recurrent (principal); E43 Unspecified severe protein-calorie malnutrition; K28.0 Acute gastrojejunal ulcer with hemorrhage; G93.41 Metabolic encephalopathy; E87.0 Hyperosmolality and hypernatremia; B37.81 Candidal esophagitis; D62 Acute posthemorrhagic anemia; T81.31XA Disruption of external operation (surgical) wound, not elsewhere classified, initial encounter; K56.7 Ileus, unspecified; F14.10 Cocaine abuse, uncomplicated; F15.90 Other stimulant use, unspecified, uncomplicated; S30.0XXA Contusion of lower back and pelvis, initial encounter; S20.229A Contusion of unspecified back wall of thorax, initial encounter; X58.XXXA Exposure to other specified factors, initial encounter; Y92.89 Other specified places as the place of occurrence of the external cause; F31.9 Bipolar disorder, unspecified; Z98.84 Bariatric surgery status; Z90.49 Acquired absence of other specified parts of digestive tract; Z79.899 Other long term (current) drug therapy; Z88.2 Allergy status to sulfonamides; J44.89 Other specified chronic obstructive pulmonary disease; D63.8 Anemia in other chronic diseases classified elsewhere; K43.9 Ventral hernia without obstruction or gangrene; K29.70 Gastritis, unspecified, without bleeding; K82.8 Other specified diseases of gallbladder; S00.31XA Abrasion of nose, initial encounter
CPT/HCPCS: 36415; 70030-TC; 70450; 71045; 74250; 83550; 83605; 83735; 84100; 84300; 84443; 84484; 85018; 85025; 85730; 86850; 86900; 86901; 86920; 87040; 93005; 94640; A4663; A6209; A6213; G0378; G0480; J0696; J1170; J2001; J2270; J2543; J3370; J3480; J3490; J3535; J7040; J7070; P9016; Q9963; Q9967

== ENCOUNTER 2023-12-24 18:02 | Emergency (ER) | payer MEDICARE, OTHER ==
[~2023-12-24] VITALS: Ht 160 cm; Wt 40.8 kg
[~2023-12-24 18:02] MED LIST changes: +ALBU18HF2 INH; +BUSP5TAB3 PO; +CITA20TA16 PO; +FLUC200T PO; -FLUO10CA26 PO; -OMEP20TA20 PO; +OMEP40CA21 PO; +OXCA600T8 PO; +QUET200T PO; +SUCR1ORA GT; +VANC500V PO
[2023-12-24 18:52] LABS: ABG BASE EXCESS 3.7 mmol/L (-2.0-2.0); ABG HCO3 28.5 mmol/L (22.0-26.0); ABG PCO2 44.1 mmHg (35.0-48.0); ABG PH 7.428 (7.340-7.440); ABG PO2 68.6 mmHg (75.0-100.0); ABG SITE RIGHT RADIAL; ABG TOTAL HEMOGLOBIN 11.4 G/dL (12.0-16.0); AaDO2 94.1 mmHg; COHb 2.2 % (0.0-3.9); MetHb 0.2 % (0.0-1.5); O2Hb 92.3 % (94.0-97.0)
[2023-12-24] MEDS ORDERED: AZITHROMYCIN IV 500 MG in IV DEXTROSE 5% 250 ML IV ONE (19:15)
[2023-12-24] MEDS ORDERED: DEXAMETHASONE SOD PHOSPHATE 10 MG INJ ONE (19:26)
[2023-12-24 19:30] LABS: BASOPHILS % (AUTO) 0.5 % (0.0-2.0); EOSINOPHILS # (AUTO) 0.3 K/uL (0.0-0.7); HEMATOCRIT 31.9 % (31.2-41.9); HEMOGLOBIN 10.7 g/dL (10.9-14.3); LYMPHOCYTES # (AUTO) 1.1 K/uL (0.8-4.8); LYMPHOCYTES % (AUTO) 16.2 % (20.5-51.5); MEAN CORPUSCULAR HEMOGLOBIN 29.8 uug (24.7-32.8); MEAN CORPUSCULAR HGB CONC 34 g/dL (32.3-35.6); MEAN CORPUSCULAR VOLUME 88.9 fL (75.5-95.3); MONOCYTES # (AUTO) 0.4 K/uL (0.1-1.30); MONOCYTES % (AUTO) 6.4 % (0.0-11.0); NEUTROPHILS # (AUTO) 4.9 K/uL (1.8-8.9); NEUTROPHILS % (AUTO) 72.9 % (38.5-71.5); PLATELET COUNT (AUTO) 251 K/uL (179-408); RED BLOOD CELL COUNT(AUTO) 3.59 MIL/uL (3.63-4.92); RED CELL DISTRIBUTION WIDTH 14.1 % (12.3-17.7); WHITE BLOOD COUNT (AUTO) 6.7 K/uL (3.8-11.8)
[2023-12-24] MEDS: DEXAMETHASONE SOD PHOSPHATE 4 MG INJ IV ONE (19:33)
[2023-12-24] MEDS ORDERED: AZITHROMYCIN 250 MG TABLET ONE (19:34)
[2023-12-24] MEDS: AZITHROMYCIN 250 MG TABLET PO ONE (19:36)
[2023-12-24] MEDS ORDERED: PRED20TA PO (19:37)
[2023-12-24] MEDS ORDERED: D-ME473S47 PO (19:37)
[2023-12-24] MEDS ORDERED: AZIT250T13 PO (19:37)
[2023-12-24 19:43] VITALS: BP 143/89; O2SAT 100
[2023-12-24 19:46] LABS: DIFFERENTIAL COMMENT 1
[2023-12-24 19:49] LABS: CALCIUM 8.5 mg/dL (8.5-10.1); CARBON DIOXIDE 28 mmol/L (21-32); CHLORIDE 106 mmol/L (98-107); CREATININE 0.6 mg/dL (0.6-1.3); GLUCOSE 92 mg/dL (74-106); POTASSIUM 3.5 mmol/L (3.5-5.1); SODIUM SERUM 142 mmol/L (136-145); UREA NITROGEN, BLOOD 18 mg/dL (7-18)
[2023-12-24 20:09] LABS: ALANINE AMINOTRANSFERASE 72 U/L (14-59); ALBUMIN 2.9 g/dL (3.4-5.0); ALKALINE PHOSPHATASE 148 U/L (50-136); ASPARTATE AMINOTRANSFERASE 61 U/L (15-37); BILIRUBIN,DIRECT 0.1 mg/dL (0.0-0.2); BILIRUBIN,TOTAL 0.1 mg/dL (0.2-1.0); NT-PRO BNP 874 pg/mL (0-125); TOTAL PROTEIN, SERUM 6.4 g/dL (6.4-8.2)
== END 2023-12-24 19:44 | disposition left against medical advice (07) ==
LOC: ER 18:03
DX: J44.1 Chronic obstructive pulmonary disease with (acute) exacerbation (principal); R03.0 Elevated blood-pressure reading, without diagnosis of hypertension; E46 Unspecified protein-calorie malnutrition; K21.9 Gastro-esophageal reflux disease without esophagitis; D64.9 Anemia, unspecified; Z79.899 Other long term (current) drug therapy; Z60.2 Problems related to living alone; Z88.2 Allergy status to sulfonamides
CPT/HCPCS: 99285; 96374; 71045; 80076; 80048; 83880; 85025; 85379; 87040 ×2; 84484; 36415; 93005; 83605; 36600; J1100; A4606; A4663; Q0144

== ENCOUNTER 2024-04-21 07:52 | Inpatient (IN) | payer MEDICARE, OTHER ==
[~2024-04-21] VITALS: Ht 157.5 cm; Wt 72.6 kg
[~2024-04-21 07:52] MED LIST changes: +AZIT250T13 PO; +D-ME473S47 PO; +PRED20TA PO
[2024-04-21] MEDS ORDERED: methylPREDNISolone SOD SUCC 125 MG/2 ML VIAL ONE (08:22)
[2024-04-21] MEDS: ALBUTEROL SULFATE 2.5 MG/3 ML NEBU NEB ONE (08:23)
[2024-04-21] MEDS: IPRATROPIUM BROMIDE 0.5 MG/2.5 ML NEBU NEB ONE (08:23)
[2024-04-21] MEDS ORDERED: ALBUTEROL SULFATE 2.5 MG/3 ML NEBU ONE (08:25)
[2024-04-21] MEDS ORDERED: IPRATROPIUM BROMIDE 0.5 MG/2.5 ML NEBU ONE (08:25)
[2024-04-21 08:30] VITALS: O2SAT 88
[2024-04-21] MEDS: methylPREDNISolone SOD SUCC 125 MG/2 ML VIAL IV ONE (08:32)
[2024-04-21 08:38] LABS: BASOPHILS % (AUTO) 0.8 % (0.0-2.0); EOSINOPHILS # (AUTO) 0.2 K/uL (0.0-0.7); EOSINOPHILS % (AUTO) 4.7 % (0.0-7.0); HEMATOCRIT 32.9 % (31.2-41.9); HEMOGLOBIN 10.8 g/dL (10.9-14.3); LYMPHOCYTES # (AUTO) 1.3 K/uL (0.8-4.8); LYMPHOCYTES % (AUTO) 26.8 % (20.5-51.5); MEAN CORPUSCULAR HEMOGLOBIN 27.9 uug (24.7-32.8); MEAN CORPUSCULAR HGB CONC 33 g/dL (32.3-35.6); MONOCYTES # (AUTO) 0.4 K/uL (0.1-1.30); MONOCYTES % (AUTO) 8.5 % (0.0-11.0); NEUTROPHILS # (AUTO) 2.9 K/uL (1.8-8.9); NEUTROPHILS % (AUTO) 59.2 % (38.5-71.5); PLATELET COUNT (AUTO) 236 K/uL (179-408); RED BLOOD CELL COUNT(AUTO) 3.87 MIL/uL (3.63-4.92); RED CELL DISTRIBUTION WIDTH 14.8 % (12.3-17.7); WHITE BLOOD COUNT (AUTO) 4.8 K/uL (3.8-11.8)
[2024-04-21 08:43] LABS: CALCIUM 8.9 mg/dL (8.5-10.1); CARBON DIOXIDE 33 mmol/L (21-32); CHLORIDE 106 mmol/L (98-107); CREATININE 0.7 mg/dL (0.6-1.3); GLUCOSE 100 mg/dL (74-106); POTASSIUM 3.8 mmol/L (3.5-5.1); SODIUM SERUM 143 mmol/L (136-145); UREA NITROGEN, BLOOD 12 mg/dL (7-18)
[2024-04-21 08:48] LABS: DIFFERENTIAL COMMENT 1
[2024-04-21 08:57] LABS: ALANINE AMINOTRANSFERASE 29 U/L (14-59); ALBUMIN 3.2 g/dL (3.4-5.0); ALKALINE PHOSPHATASE 151 U/L (50-136); ASPARTATE AMINOTRANSFERASE 21 U/L (15-37); BILIRUBIN,DIRECT 0.1 mg/dL (0.0-0.2); BILIRUBIN,TOTAL 0.2 mg/dL (0.2-1.0); NT-PRO BNP 1532 pg/mL (0-125); TOTAL PROTEIN, SERUM 7.1 g/dL (6.4-8.2)
[2024-04-21 09:25] VITALS: O2SAT 100; O2SAT 96
[2024-04-21] MEDS ORDERED: MAGNESIUM HYDROXIDE 30 ML LIQUID UDC PO PRN (10:00)
[2024-04-21] MEDS ORDERED: ONDANSETRON 4 MG/2 ML VIAL IV PRN (10:00)
[2024-04-21] MEDS ORDERED: IPRATROPIUM BROMIDE 0.5 MG/2.5 ML NEBU NEB PRN (10:00)
[2024-04-21] MEDS ORDERED: HYDROCODONE/APAP 5-325MG TABLET PO PRN (10:00)
[2024-04-21] MEDS ORDERED: ALBUTEROL SULFATE 2.5 MG/3 ML NEBU NEB PRN (10:00)
[2024-04-21] MEDS ORDERED: REMEDY ESSENTIAL ZINC PASTE 113 GM TP PRN (10:00)
[2024-04-21] MEDS ORDERED: TEMAZEPAM 15 MG CAPSULE PO PRN (10:00)
[2024-04-21] MEDS ORDERED: ACETAMINOPHEN 325 MG TABLET PO PRN (10:00)
[2024-04-21] MEDS ORDERED: PRED50TA PO (12:50)
[2024-04-21 12:58] VITALS: BP 143/88; TEMP 98.3; O2SAT 96
[2024-04-21] MEDS ORDERED: methylPREDNISolone SOD SUCC 40 MG/ML VIAL IV SCH (14:00)
[2024-04-22] MEDS ORDERED: PANTOPRAZOLE SODIUM 40 MG TABLET.DR PO SCH (07:00)
== END 2024-04-21 13:00 | disposition home or self-care (01) | DRG 190 ==
LOC: ER 07:52 → TELE3 10:08
PROVIDERS: ADMIT Nurse Practitioner Acute Care; ATTEND Nurse Practitioner Acute Care
DX: J44.1 Chronic obstructive pulmonary disease with (acute) exacerbation (principal); J96.01 Acute respiratory failure with hypoxia; F31.9 Bipolar disorder, unspecified; D63.8 Anemia in other chronic diseases classified elsewhere; Z87.891 Personal history of nicotine dependence; Z98.84 Bariatric surgery status; Z90.49 Acquired absence of other specified parts of digestive tract; Z86.19 Personal history of other infectious and parasitic diseases; Z88.2 Allergy status to sulfonamides; Z79.899 Other long term (current) drug therapy
CPT/HCPCS: 36415; 71045; 83605; 83735; 84484; 85025; 87040; 93005; 94664; A4606; A4663; G0378; J2919; J3590; J7040